=== PATIENT | male | born 1980 | race Caucasian/White ===

== ENCOUNTER 2019-06-15 18:26 | Emergency (ER) | payer BC ==
--- NOTE | 2019-06-15 19:08 | EDPHYS ---
Physician Documentation [facility] Name: Caren Cody Age: 38 yrs Sex: Male : 1980 Arrival Date: 06/15/2019 Time: 18:29 Bed 5 Private MD: ED Physician Cliff Acevedo HPI: 06/15 19:03 This 38 yrs old Male presents to ER via EMS with complaints of Back Pain. kb 19:03 The patient presents with pain that is acute, and tenderness. The symptoms are located kb in the left low back. Onset: The symptoms/episode began/occurred just prior to arrival. The pain radiates to the left low back. Associated signs and symptoms: The patient has no apparent associated signs or symptoms. The problem was sustained when bending over. Modifying factors: The patient symptoms are alleviated by nothing, the patient symptoms are aggravated by any movement. Severity of symptoms: At their worst the symptoms were moderate, in the emergency department the symptoms are unchanged. The patient has not experienced similar symptoms in the past. The patient has not recently seen a physician. Pt reports he bent over at work and when he went to stand back up he had a sharp pain to left low back that radiated down left leg. Historical: - Allergies: 18:31 No Known Allergies; ss - Home Meds: 18:31 None [Active]; ss - PMHx: 18:31 High Cholesterol; ss - PSHx: 18:31 None; ss - Immunization history:: Adult Immunizations up to date. - Social history:: Smoking status: Patient/guardian denies using tobacco. - Ebola Screening: : Patient denies exposure to infectious person Patient denies travel to an Ebola-affected area in the 21 days before illness onset. ROS: 19:00 Constitutional: Negative for fever, chills, and weight loss, Cardiovascular: Negative kb for chest pain, palpitations, and edema, Respiratory: Negative for shortness of breath, cough, wheezing, and pleuritic chest pain, Abdomen/GI: Negative for abdominal pain, nausea, vomiting, diarrhea, and constipation, : Negative for injury, bleeding, discharge, and swelling, MS/Extremity: Negative for injury and deformity, Skin: Negative for injury, rash, and discoloration, Neuro: Negative for headache, weakness, numbness, tingling, and seizure. 19:00 Back: Positive for pain at rest, pain with movement, radiated pain, of the left low back. Exam: 19:00 Constitutional: This is a well developed, well nourished patient who is awake, alert, kb and in no acute distress. Head/Face: Normocephalic, atraumatic. Neck: Trachea midline, no thyromegaly or masses palpated, and no cervical lymphadenopathy. Supple, full range of motion without nuchal rigidity, or vertebral point tenderness. No Meningismus. Chest/axilla: Normal chest wall appearance and motion. Nontender with no deformity. No lesions are appreciated. Cardiovascular: Regular rate and rhythm with a normal S1 and S2. No gallops, murmurs, or rubs. Normal PMI, no JVD. No pulse deficits. Respiratory: Lungs have equal breath sounds bilaterally, clear to auscultation and percussion. No rales, rhonchi or wheezes noted. No increased work of breathing, no retractions or nasal flaring. Abdomen/GI: Soft, non-tender, with normal bowel sounds. No distension or tympany. No guarding or rebound. No evidence of tenderness throughout. Skin: Warm, dry with normal turgor. Normal color with no rashes, no lesions, and no evidence of cellulitis. MS/ Extremity: Pulses equal, no cyanosis. Neurovascular intact. Full, normal range of motion. Neuro: Awake and alert, GCS 15, oriented to person, place, time, and situation. Cranial nerves II-XII grossly intact. Motor strength 5/5 in all extremities. Sensory grossly intact. Cerebellar exam normal. Normal gait. 19:00 Back: pain, that is moderate, of the left low back, ROM is painful, with all movement, normal spinal alignment noted. Vital Signs: 18:31 BP 133 / 84; Pulse 87; Resp 16; Temp 98.2(TE); Pulse Ox 100% on R/A; Weight 81.65 kg ss (R); Height 5 ft. 7 in. (170.18 cm); Pain 6/10; 19:22 BP 131 / 89; Pulse 82; Resp 18; Pulse Ox 100% on R/A; ak1 19:25 BP 131 / 82; Pulse 84; Resp 18; Pulse Ox 99% on R/A; tw2 18:31 Body Mass Index 28.19 (81.65 kg, 170.18 cm) MDM: 18:32 Patient medically screened. kb 19:02 Data reviewed: vital signs, nurses notes. Data interpreted: Pulse oximetry: on room air kb is 100 %. Interpretation: normal. Counseling: I had a detailed discussion with the patient and/or guardian regarding: the historical points, exam findings, and any diagnostic results supporting the discharge/admit diagnosis, the need for outpatient follow up, a family practitioner, to return to the emergency department if symptoms worsen or persist or if there are any questions or concerns that arise at home. 19:08 ED course: Pt states "They want me to go to the [facility] doctor and I want to see the [facility] doctor so can I go?" Pt does not want any prescriptions from here. Administered Medications: 19:19 Not Given (Patient Refused): SOLU-Medrol 125 mg IM once tw2 19:19 Not Given (Patient Refused): TORadol 30 mg IM once tw2 Disposition: 06/16 07:07 Co-signature as Attending Physician, Cliff Acevedo MD I agree with the assessment and kdr plan of care. Disposition: 06/15/19 19:08 Discharged to Home. Impression: Sciatica, left side. - Condition is Stable. - Discharge Instructions: Sciatica, [id number], Back Exercises, [id number]. - Medication Reconciliation Form, Thank You Letter, Antibiotic Education, Prescription Opioid Use, Work release form form. - Follow up: Emergency Department; When: As needed; Reason: Worsening of condition. Follow up: Private Physician; When: 2 - 3 days; Reason: Recheck today's complaints, Continuance of care, Re-evaluation by your physician. Signatures: Barbara Dawn, LOW PRESSURE BOILER OPERATOR-C DONNIE-Cliff Rivera MD MD [facility] Paula Garcia RN RN ss Bonnie Bullock RN RN tw2 Corrections: (The following items were deleted from the chart) 06/15 19:25 19:08 06/15/2019 19:08 Discharged to Home. Impression: Sciatica, left side. Condition tw2 is Stable. Forms are Medication Reconciliation Form, Thank You Letter, Antibiotic Education, Prescription Opioid Use. Follow up: Emergency Department; When: As needed; Reason: Worsening of condition. Follow up: Private Physician; When: 2 - 3 days; Reason: Recheck today's complaints, Continuance of care, Re-evaluation by your physician. kb
--- NOTE | 2019-06-15 19:08 | ER ---
Nurse's Notes [facility] Name: Caren Cody Age: 38 yrs Sex: Male : 1980 Arrival Date: 06/15/2019 Time: 18:29 Bed 5 Private MD: Diagnosis: Sciatica, left side Presentation: 06/15 18:29 Presenting complaint: Patient states: L low back pain that began while pulling ss something at work. Patient reports that pain radiates down L leg. Transition of care: patient was not received from another setting of care. Onset of symptoms was June 15, 2019. Risk Assessment: Do you want to hurt yourself or someone else? Patient reports no desire to harm self or others. Initial Sepsis Screen: Does the patient meet any 2 criteria? No. Patient's initial sepsis screen is negative. Does the patient have a suspected source of infection? No. Patient's initial sepsis screen is negative. Care prior to arrival: None. 18:29 Method Of Arrival: EMS: [facility] 18:29 Acuity: TRACIE 4 ss Historical: - Allergies: 18:31 No Known Allergies; ss - Home Meds: 18:31 None [Active]; ss - PMHx: 18:31 High Cholesterol; ss - PSHx: 18:31 None; ss - Immunization history:: Adult Immunizations up to date. - Social history:: Smoking status: Patient/guardian denies using tobacco. - Ebola Screening: : Patient denies exposure to infectious person Patient denies travel to an Ebola-affected area in the 21 days before illness onset. Screenin:31 Abuse screen: Denies threats or abuse. Denies injuries from another. Nutritional ss screening: No deficits noted. Tuberculosis screening: Never had TB. Fall Risk None identified. Assessment: 18:31 General: Appears uncomfortable, Behavior is calm, cooperative, is smiling, laughing ss with ER staff. Pain: Complains of pain in left low back Pain currently is 6 out of 10 on a pain scale. at worst was 9 out of 10 on a pain scale. Quality of pain is described as aching, tender, Pain began suddenly, Is continuous. Neuro: Level of Consciousness is awake, alert, obeys commands, Oriented to person, place, time, situation, Fittings Finisher are equal bilaterally Speech is normal. Cardiovascular: Capillary refill < 3 seconds is brisk in bilateral fingers Patient's skin is warm and dry. Respiratory: Airway is patent Respiratory effort is even, unlabored, Respiratory pattern is regular, symmetrical. GI: Patient currently denies diarrhea, nausea, vomiting. : No signs and/or symptoms were reported regarding the genitourinary system. EENT: Derm: Skin is intact, is healthy with good turgor, Skin is dry, Skin is pink, warm \T\ dry. Skin temperature is warm. Musculoskeletal: Circulation, motion, and sensation intact. Range of motion: intact in all extremities, Swelling absent. 19:25 Reassessment: Patient appears in no apparent distress at this time. No changes from tw2 previously documented assessment. Patient and/or family updated on plan of care and expected duration. Pain level reassessed. Patient is alert, oriented x 3, equal unlabored respirations, skin warm/dry/pink. Vital Signs: 18:31 BP 133 / 84; Pulse 87; Resp 16; Temp 98.2(TE); Pulse Ox 100% on R/A; Weight 81.65 kg ss (R); Height 5 ft. 7 in. (170.18 cm); Pain 6/10; 19:22 BP 131 / 89; Pulse 82; Resp 18; Pulse Ox 100% on R/A; ak1 19:25 BP 131 / 82; Pulse 84; Resp 18; Pulse Ox 99% on R/A; tw2 18:31 Body Mass Index 28.19 (81.65 kg, 170.18 cm) ED Course: 18:29 Patient arrived in ED. ss 18:30 Triage completed. ss 18:31 Arm band placed on right wrist. ss 18:31 Patient has correct armband on for positive identification. Bed in low position. Call ss light in reach. 18:32 Barbara Dawn FNP-C [facility]. kb 18:32 Cliff Acevedo MD is Attending Physician. kb 18:37 Bonnie Bullock, RACHEL is Primary Nurse. tw2 19:24 No provider procedures requiring assistance completed. Patient did not have IV access sv during this emergency room visit. Administered Medications: 19:19 Not Given (Patient Refused): SOLU-Medrol 125 mg IM once tw2 19:19 Not Given (Patient Refused): TORadol 30 mg IM once tw2 Outcome: 19:08 Discharge ordered by . kb 19:25 Discharged to home ambulatory, with significant other. tw2 19:25 Condition: stable 19:25 Discharge instructions given to patient, significant other, Instructed on discharge instructions, follow up and referral plans. Demonstrated understanding of instructions, follow-up care. 19:25 Patient left the ED. tw2 Signatures: Barbara Dawn, SEED ANALYSIS LABORATORY ASSISTANT-C SEED ANALYSIS LABORATORY ASSISTANT-Lidia Hicks, RN RN Paula Garcia RN RN Estephanie Collado RN RN ak1 Bonnie Bullock RN RN tw2 Corrections: (The following items were deleted from the chart) 18:31 18:31 BP 133 / 84; Pulse 87bpm; Resp 16bpm; Pulse Ox 100% RA; Temp 98.2F Temporal; ss 81.65 kg; Height 5 ft. 7 in.; BMI: 28.1; Pain 6/10; ss
== END 2019-06-15 19:25 | disposition home or self-care (01) ==
LOC: ER 18:26
DX: M54.32 Sciatica, left side (principal); E78.00 Pure hypercholesterolemia, unspecified
CPT/HCPCS: 99283